=== PATIENT | male | born 1950 | race Two or more races ===

== ENCOUNTER 2020-12-21 05:16 | Emergency (ER) | payer OTHER ==
[~2020-12-21] VITALS: Ht 160 cm; Wt 53.1 kg
[2020-12-21] MEDS ORDERED: FORTAMET500 MG (05:51)
[2020-12-21] MEDS ORDERED: FENOFIBRATE40 MG (05:51)
[2020-12-21] MEDS ORDERED: ZETIA10 MG (05:51)
[2020-12-21] MEDS ORDERED: KETO10TA2 PO (11:51)
[2020-12-21] MEDS ORDERED: AMOX-CLAV 875-1 EACH PO (11:51)
== END 2020-12-21 12:12 | disposition home or self-care (01) ==
LOC: ER 05:16
DX: R60.0 Localized edema (principal)